=== PATIENT | male | born 1960 | race African-American/Black ===

== ENCOUNTER 2020-07-28 02:43 | Emergency (ER) | payer MEDICAID, OTHER ==
[~2020-07-28] VITALS: Ht 182.9 cm; Wt 80.0 kg
[2020-07-28] MEDS ORDERED: SODIUM CHLORIDE 0.9% 1,000 ML IV ONE (03:39)
[2020-07-28] MEDS ORDERED: MORPHINE SULFATE 4 MG/ML CPJ (NOT FOR IM USE) IV STA (03:39)
[2020-07-28] MEDS ORDERED: ONDANSETRON HCL 4MG/2ML INJ IV STA (03:39)
[2020-07-28] MEDS ORDERED: MAGNESIUM/ALUMINUM HYDROXIDE/SIMETHICONE 30ML UDC PO ONE (03:45)
[2020-07-28] MEDS ORDERED: METOCLOPRAMIDE HCL 10MG/2ML VIAL IV ONE (03:45)
[2020-07-28] MEDS ORDERED: VISCOUS LIDOCAINE 2% 15 ML UDC PO ONE (03:45)
[2020-07-28 04:10] LABS: BASOPHILS % 0.9 % (0.0-2.0); EOSINOPHILS % 0.2 % (0.0-5.0); HEMATOCRIT. 43.9 % (42.0-52.0); HEMOGLOBIN. 14.2 g/dL (14.0-18.0); LYMPHOCYTES % 16.5 % (20.0-50.0); MEAN CORPUSCULAR HEMOGLOBIN 25.1 pg (28.0-32.0); MEAN CORPUSCULAR VOLUME 77.5 fL (80.0-94.0); MEAN PLATELET VOLUME 8.6 fl (7.4-10.4); MONOCYTES % 5.8 % (2.0-8.0); NEUTROPHILS % 76.6 % (40.0-76.0); PLATELET 214 x1000/uL (130-400); RED BLOOD CELL COUNT 5.67 mill/uL (4.7-6.1); RED CELL DISTRIBUTION WIDTH 15.1 % (11.6-14.6)
[2020-07-28 04:17] LABS: CHLORIDE 109 mEq/L (98-107)
[2020-07-28 04:23] LABS: INR 1.1; PARTIAL THROMBOPLASTIN TIME 23.5 sec (23.4-31.0); PROTHROMBIN TIME 11.7 sec (9.6-11.0)
[2020-07-28 07:35] VITALS: BP 133/78
== END 2020-07-28 07:55 | disposition home or self-care (01) ==
LOC: ER 02:43
DX: R10.13 Epigastric pain (principal); R11.2 Nausea with vomiting, unspecified; K80.50 Calculus of bile duct without cholangitis or cholecystitis without obstruction; I10 Essential (primary) hypertension
CPT/HCPCS: 36415; 71045; 74176; 80053; 83690; 83880; 84484; 85025; 85610; 85730; 93005; 96361; 96374; 96375; 99285; J2270; J2405; J2765; J7030

== ENCOUNTER 2020-10-14 19:31 | Inpatient (IN) | payer MEDICAID, OTHER ==
[~2020-10-14] VITALS: Ht 182.9 cm; Wt 81.9 kg
[2020-10-14] MEDS ORDERED: ONDANSETRON HCL 4MG/2ML INJ IV STA (20:07)
[2020-10-14] MEDS ORDERED: FAMOTIDINE 20MG/2ML VIAL IV STA (20:07)
[2020-10-14] MEDS ORDERED: MORPHINE SULFATE 4 MG/ML CPJ (NOT FOR IM USE) IV STA (20:07)
[2020-10-14] MEDS ORDERED: SODIUM CHLORIDE 0.9% 1,000 ML IV ONE (20:15)
[2020-10-14 21:53] LABS: HEMATOCRIT. 41.5 % (42.0-52.0); HEMOGLOBIN. 13.7 g/dL (14.0-18.0); MEAN CORPUSCULAR HEMOGLOBIN 25.5 pg (28.0-32.0); MEAN CORPUSCULAR VOLUME 77.3 fL (80.0-94.0); MEAN PLATELET VOLUME 8.7 fl (7.4-10.4); PLATELET 164 x1000/uL (130-400); RED BLOOD CELL COUNT 5.37 mill/uL (4.7-6.1); RED CELL DISTRIBUTION WIDTH 15.1 % (11.6-14.6)
[2020-10-14 22:00] LABS: CHLORIDE 107 mEq/L (98-107)
[2020-10-14 22:11] LABS: PLATELET ESTIMATE NORMAL
[2020-10-15] MEDS ORDERED: ONDANSETRON HCL 4MG/2ML INJ IV ONE (00:45)
[2020-10-15 02:57] LABS: CLARITY URINE CLEAR (CLEAR); COLOR URINE DARK YELLOW (YELLOW); KETONES URINE 3+ (NEGATIVE); LEUKOCYTE ESTERASE URINE NEGATIVE (NEGATIVE); NITRITE URINE NEGATIVE (NEGATIVE); OCCULT BLOOD URINE NEGATIVE (NEGATIVE); PH URINE 6.5 (4.5-8.0); PROTEIN URINE 1+ (NEGATIVE); SPECIFIC GRAVITY URINE 1.031 (1.005-1.030)
[2020-10-15] MEDS ORDERED: ACETAMINOPHEN 325MG TABLET PO PRN (09:15)
[2020-10-15] MEDS: ONDANSETRON HCL 4MG/2ML INJ IV PRN ×2 (09:47→20:46)
[2020-10-15] MEDS: OMEPRAZOLE 20MG CAPSULE EXTENDED RELEASE PO SCH (09:51)
[2020-10-15 12:00] VITALS: BP 107/65
[2020-10-15 12:08] VITALS: BP 129/77
[2020-10-15 16:00] VITALS: BP 116/80
[2020-10-15 20:00] VITALS: BP 130/73
[2020-10-15] MEDS ORDERED: MORPHINE SULFATE 2 MG/ML CPJ (NOT FOR IM USE) IV PRN (21:30)
[2020-10-16] VITALS: BP 106/76
[2020-10-16] MEDS: OMEPRAZOLE 20MG CAPSULE EXTENDED RELEASE PO SCH (06:48)
[2020-10-16 06:51] VITALS: BP 135/75
[2020-10-16 08:00] VITALS: BP 153/84
[2020-10-16 12:00] VITALS: BP_SYST 125; BP_SYST 138; BP_DIAS 78; BP_DIAS 79
[2020-10-16] MEDS ORDERED: FAMO-135 MT (12:58)
[2020-10-16 14:06] VITALS: BP 132/77
== END 2020-10-16 14:35 | disposition home or self-care (01) | DRG 243 ==
LOC: ER 19:31 → 6EST 21:42 → ENRESERV 10-15 10:01
PROVIDERS: ADMIT Internal Medicine; ATTEND Internal Medicine
DX: K21.9 Gastro-esophageal reflux disease without esophagitis (principal); E87.2 Acidosis; K52.9 Noninfective gastroenteritis and colitis, unspecified; I10 Essential (primary) hypertension
CPT/HCPCS: 36415; 80053; 81003; 83036; 83605; 85025; 93005; 96374; 99285; J2270; J2405; J3490; J7030

== ENCOUNTER 2021-09-04 10:13 | Emergency (ER) | payer MEDICAID, OTHER ==
[~2021-09-04] VITALS: Ht 182.9 cm; Wt 73.0 kg
[~2021-09-04 10:13] MED LIST: FAMO-135 MT
[2021-09-04] MEDS ORDERED: MORPHINE SULFATE 4 MG/ML CPJ (NOT FOR IM USE) IV ONE (10:30)
[2021-09-04] MEDS ORDERED: MORPHINE SULFATE 2 MG/ML CPJ (NOT FOR IM USE) IV NR ×2 (10:30→13:30)
[2021-09-04 10:32] LABS: BASOPHILS % 0.5 % (0.0-2.0); EOSINOPHILS % 0.3 % (0.0-5.0); HEMATOCRIT. 46.4 % (42.0-52.0); LYMPHOCYTES % 20.4 % (20.0-50.0); MEAN CORPUSCULAR HEMOGLOBIN 25.7 pg (28.0-32.0); MEAN CORPUSCULAR VOLUME 79.8 fL (80.0-94.0); MEAN PLATELET VOLUME 8.5 fl (7.4-10.4); MONOCYTES % 6.1 % (2.0-8.0); NEUTROPHILS % 72.7 % (40.0-76.0); PLATELET 251 x1000/uL (130-400); RED BLOOD CELL COUNT 5.81 mill/uL (4.7-6.1); RED CELL DISTRIBUTION WIDTH 15.1 % (11.6-14.6)
[2021-09-04 10:40] LABS: CHLORIDE 108 mEq/L (98-107)
[2021-09-04 10:47] LABS: ETHANOL BLOOD < 10 mg/dL
[2021-09-04 10:48] LABS: C REACTIVE PROTEIN QUANT 0.6 mg/L (0.0-3.0)
[2021-09-04 10:50] LABS: INR 1.1; PROTHROMBIN TIME 11.4 sec (9.6-11.0)
[2021-09-04 11:02] LABS: CREATINE KINASE 1147 IU/L (39-308)
[2021-09-04] MEDS ORDERED: ONDANSETRON HCL 4MG/2ML INJ IV ONE (11:15)
[2021-09-04 17:36] VITALS: BP 138/78
== END 2021-09-04 17:51 | disposition short-term general hospital (02) ==
LOC: ER 10:13 → EDBEDREQSVC 15:13 → ER 17:51 → CANBEDREQ 19:35
DX: R10.13 Epigastric pain (principal); R11.2 Nausea with vomiting, unspecified; E87.2 Acidosis; F12.10 Cannabis abuse, uncomplicated; Z87.19 Personal history of other diseases of the digestive system
CPT/HCPCS: 36415; 71045; 74176; 80053; 80307; 80320; 80329; 82550; 83605; 83615; 83690; 83880; 84145; 84484; 85025; 85384; 85610; 86140; 87040; 87426; 93005; 96374; 96375; 96376; 99285; J2270; J2405; G0480

== ENCOUNTER 2022-10-16 10:02 | Emergency (ER) | payer MEDICAID, OTHER ==
[~2022-10-16] VITALS: Ht 177.8 cm; Wt 78.0 kg
[2022-10-16] MEDS ORDERED: ONDANSETRON HCL 4MG/2ML INJ IV ONE (10:45)
[2022-10-16] MEDS ORDERED: MORPHINE SULFATE 4 MG/ML CPJ (NOT FOR IM USE) IV ONE (10:45)
[2022-10-16 11:38] LABS: CHLORIDE 108 mEq/L (98-107)
[2022-10-16 11:45] LABS: ETHANOL BLOOD < 10 mg/dL
[2022-10-16 11:56] LABS: BASOPHILS % 0.9 % (0.0-2.0); HEMOGLOBIN. 13.6 g/dL (14.0-18.0); LYMPHOCYTES % 8.2 % (20.0-50.0); MEAN CORPUSCULAR HEMOGLOBIN 25.4 pg (28.0-32.0); MEAN CORPUSCULAR VOLUME 78.6 fL (80.0-94.0); MONOCYTES % 2.5 % (2.0-8.0); NEUTROPHILS % 88.4 % (40.0-76.0); PLATELET 182 x1000/uL (130-400); RED BLOOD CELL COUNT 5.34 mill/uL (4.7-6.1); RED CELL DISTRIBUTION WIDTH 14.8 % (11.6-14.6)
[2022-10-16 12:05] LABS: INR 1.1; PROTHROMBIN TIME 11.3 sec (9.6-11.0)
[2022-10-16] MEDS ORDERED: MAG355OR21 MT (12:27)
[2022-10-16] MEDS ORDERED: ONDA4TAB50 MT (12:27)
[2022-10-16] MEDS ORDERED: HYDR-4001 MT (12:27)
[2022-10-16 12:34] VITALS: BP 136/81
== END 2022-10-16 13:14 | disposition home or self-care (01) ==
LOC: ER 10:02
DX: R10.84 Generalized abdominal pain (principal); R11.2 Nausea with vomiting, unspecified; N28.1 Cyst of kidney, acquired; D72.829 Elevated white blood cell count, unspecified
CPT/HCPCS: 36415; 74176; 76705; 80053; 80320; 83690; 85025; 85610; 86850; 86900; 86901; 96374; 96375; 99284; J2270; J2405; Z7610; G0480

== ENCOUNTER 2023-03-18 11:01 | Emergency (ER) | payer OTHER ==
[~2023-03-18] VITALS: Ht 188 cm; Wt 82.0 kg
[~2023-03-18 11:01] MED LIST changes: +HYDR-4001 MT; +MAG355OR21 MT; +ONDA4TAB50 MT
[2023-03-18] MEDS ORDERED: ONDANSETRON 4MG ODT PO ONE (11:15)
[2023-03-18] MEDS ORDERED: MORPHINE SULFATE 4 MG/ML CPJ (NOT FOR IM USE) IV STA (11:22)
[2023-03-18 11:36] LABS: BASOPHILS % 0.4 % (0.0-2.0); EOSINOPHILS % 0.1 % (0.0-5.0); HEMATOCRIT. 40.3 % (42.0-52.0); LYMPHOCYTES % 12.4 % (20.0-50.0); MEAN CORPUSCULAR VOLUME 77.2 fL (80.0-94.0); MEAN PLATELET VOLUME 7.7 fl (7.4-10.4); MONOCYTES % 5.1 % (2.0-8.0); PLATELET 210 x1000/uL (130-400); RED BLOOD CELL COUNT 5.21 mill/uL (4.7-6.1); RED CELL DISTRIBUTION WIDTH 15.3 % (11.6-14.6)
[2023-03-18 11:43] LABS: CHLORIDE 110 mEq/L (98-107)
[2023-03-18] MEDS ORDERED: ONDANSETRON HCL 4MG/2ML INJ IV ONE (13:00)
[2023-03-18] MEDS ORDERED: HALOPERIDOL LACTATE 5MG/ML VIAL IM ONE (15:15)
[2023-03-18] MEDS ORDERED: SODIUM CHLORIDE 0.9% 1,000 ML IV ONE (15:15)
[2023-03-18 15:41] LABS: CLARITY URINE CLEAR (CLEAR); COLOR URINE YELLOW (YELLOW); KETONES URINE 2+ (NEGATIVE); LEUKOCYTE ESTERASE URINE NEGATIVE (NEGATIVE); NITRITE URINE NEGATIVE (NEGATIVE); OCCULT BLOOD URINE NEGATIVE (NEGATIVE); PH URINE 8.5 (4.5-8.0); PROTEIN URINE TRACE (NEGATIVE); SPECIFIC GRAVITY URINE 1.022 (1.005-1.030); UROBILINOGEN URINE 0.2 E.U./dL (0.2-1.0)
[2023-03-18] MEDS ORDERED: FEO PR (17:15)
[2023-03-18] MEDS ORDERED: DOCU250C69 MT (17:15)
[2023-03-18 18:44] VITALS: BP 153/75
== END 2023-03-18 18:45 | disposition home or self-care (01) ==
LOC: ER 11:01
DX: R10.13 Epigastric pain (principal); F12.10 Cannabis abuse, uncomplicated
CPT/HCPCS: 36415; 74176; 80053; 81003; 83690; 83880; 84484; 85025; 93005; 96361; 96372; 96374; 96375; 99285; J1630; J2270; J2405; J7030; Z7610